=== PATIENT | male | born 1990 ===

== ENCOUNTER 2020-04-20 12:38 | Emergency (ER) | payer SELFPAY ==
[~2020-04-20] VITALS: Ht 182.9 cm; Wt 99.8 kg
[2020-04-20] MEDS ORDERED: BENADRYL25 MG PO (12:57)
== END 2020-04-20 14:40 | disposition home or self-care (01) ==
LOC: ER 12:38
DX: L29.9 Pruritus, unspecified (principal); Z79.899 Other long term (current) drug therapy
CPT/HCPCS: 99282; J1100